=== PATIENT | male | born 1975 | race Two or more races ===

== ENCOUNTER → 2024-05-21 | Outpatient (CLI) | payer BC, SELFPAY ==
[2024-05-21 13:44] LABS: Prostate Specific Antigen < 0.10 ng/mL (0-4.00)
== END | disposition home or self-care (01) ==
PROVIDERS: PCP Family Medicine; Referring Provider Physician Assistant; Visit Provider Physician Assistant
DX: C61 Malignant neoplasm of prostate (principal)
CPT/HCPCS: 36415; 84153